=== PATIENT | female | born 1970 | race Hispanic/Latino ===

== ENCOUNTER 2017-06-21 11:54 | Inpatient (IN) | payer MEDICAID ==
[2017-06-21 11:55] VITALS: BMI 26.4
[2017-06-21 12:44] LABS: BASO % 0.5 % (0.0-2.0); EOS # 0.1 K/uL (0.0-0.7); EOS % 0.9 % (0.0-4.0); HEMOGLOBIN 12.8 g/dL (11.0-16.0); LYMPH # 1.8 K/uL (1.0-4.3); LYMPH % 20.4 % (20.0-40.0); MEAN CELL VOLUME 93.7 fL (81.0-99.0); MEAN PLATELET VOLUME 8.5 fL (7.2-11.7); MONO # 0.5 K/uL (0.0-0.8); NEUT # 6.3 K/uL (1.8-7.0); NEUT % 72.2 % (50.0-75.0); RBC 4.12 Mil/uL (3.80-5.20); RED CELL DISTRIBUTION WIDTH 13.7 % (11.5-14.5); WHITE BLOOD COUNT 8.7 K/uL (4.8-10.8)
[2017-06-21 12:49] LABS: ALBUMIN 3.9 g/dL (3.5-5.0)
[2017-06-21 12:52] LABS: ALB/GLOB RATIO 1.3 (1.0-2.1); AST/SGOT 22 U/L (14-36); GFR AFRICAN-AMERICAN > 60; GFR NON-AFRICAN AMERICAN > 60
[2017-06-21 12:53] LABS: ALT/SGPT 21 U/L (9-52); BLOOD UREA NITROGEN 18 mg/dL (7-17); CALCIUM 8.7 mg/dl (8.6-10.4)
--- NOTE | 2017-06-21 12:57 | C.PDOC ---
History Of Present Illness Zakia Ji, a 47 year old female, presents to the ED requesting an alcohol and opiate detox. Patient reports that her last drink was yesterday at 1999 and her last heroin INH was at 0900. Denies HI/SI hallucinations. Chief Complaint (Nursing): Substance Abuse History Per: Patient History/Exam Limitations: no limitations Modifying Factor(s): Alcohol, Other (Opiates) Past Medical History Reviewed: Historical Data, Nursing Documentation, Vital Signs Vital Signs: Last Vital Signs Temp 98.2 F 06/21/17 15:43 Pulse 84 06/21/17 15:43 Resp 18 06/21/17 15:43 BP 108/74 06/21/17 15:43 Pulse Ox 98 06/21/17 15:43 - Medical History PMH: Anxiety, Bipolar Disorder, COPD, Depression Denies: Alzheimer's Disease, Anemia, Arthritis, Asthma, Bronchitis, Cardia Arrhythmia, CHF, Crohn's Disease, Dementia, Diabetes, Diverticulitis, Emphysema , Fibromyalgia, Fractures, Gastrointestinal Ulcer, Gall Bladder Disease, Hepatitis, HIV, HTN, Hypercholesterolemia, Hyperthyroidism, Hypothyroidism, Kidney Stones, Migraine, Mitral Valve Prolapse, Osteoporosis, Pancreatitis, Paranoia, Parkinson's Disease, Peripheral Edema, Pneumonia, Post Traumatic Stress Disorder, Chronic Kidney Disease, Schizophrenia, Seizures, Sickle Cell Disease, Sexually Transmitted Disease, Sleep Apnea, TIA Surgical History: Denies: Appendectomy, Cholecystectomy, Coronary Stent, Pacemaker - [facility] Procedures INJECT/INFUSE NEC (10/10/13) PSYCHIA INTERV/EVAL NEC (08/10/14) SUTURE OF LIP LACERATION (04/27/14) TETANUS TOXOID ADMINIST (04/27/14) Family History: States: Unknown Family Hx - Social History Hx Tobacco Use: Yes Hx Alcohol Use: No Hx Substance Use: No - Immunization History Hx Tetanus Toxoid Vaccination: Yes (2015) Hx Influenza Vaccination: Yes Hx Pneumococcal Vaccination: No Review Of Systems Except As Marked, All Systems Reviewed And Found Negative. Psych: Positive for: Other (No homicidal ideations). Negative for: Suicidal ideation Physical Exam - Physical Exam Appears: Well, Non-toxic, No Acute Distress Skin: Normal Color, Warm, Dry Head: Atraumatic, Normacephalic, No Tenderness Eye(s): bilateral: Normal Inspection, PERRL, EOMI Nose: Normal Oral Mucosa: Moist Tongue: Normal Appearing Lips: Normal Appearing Gingiva: Normal Appearing Throat: Normal Neck: Normal, Normal ROM, Supple Chest: No Deformity, No Tenderness Cardiovascular: Rhythm Regular Respiratory: Normal Breath Sounds, No Wheezing Gastrointestinal/Abdominal: Normal Exam, Bowel Sounds, Soft, No Tenderness, No Guarding, No Rebound Back: Normal Inspection, No CVA Tenderness Extremity: Normal ROM, No Tenderness, No Pedal Edema, No Deformity, No Swelling Neurological/Psych: Oriented x3, Normal Speech, Normal Cognition ED Course And Treatment - Laboratory Results Result Diagrams: 06/21/17 12:37 06/21/17 12:37 O2 Sat by Pulse Oximetry: 98 (RA) Pulse Ox Interpretation: Normal Progress Note: Patient is medically cleared and was accepted to Detox by . Medical Decision Making Medical Decision Making: Initial Impression: 47 year old male presenting for alcohol and opiate detox Initial Plan: * Alcohol serum * Comp Metabolic panel * Drug Screen * CBC * HCG-Qualitative * Urinalysis * Reevaluation Patient screened by crisis, Pending medical evaluation. Disposition - Disposition Disposition: HOSPITALIZED Disposition Time: 14:42 Condition: STABLE - Clinical Impression Clinical Impression: Drug dependence, Alcohol dependence - Scribe Statement The provider has reviewed the documentation as recorded by the Scribe Samina Fletcher All medical record entries made by the Scribe were at my direction and personally dictated by me. I have reviewed the chart and agree that the record accurately reflects my personal performance of the history, physical exam, medical decision making, and the department course for this patient. I have also personally directed, reviewed, and agree with the discharge instructions and disposition. Decision To Admit - Pt Status Changed To: Hospital Disposition Of: Inpatient - Admit Certification Admit to Inpatient:: After my assessment, the patient will require hospitalization for at least two midnights. This is because of the severity of symptoms shown, intensity of services needed, and/or the medical risk in this patient being treated as an outpatient. - InPatient: Physician Admission Certification: I certify that this patient requires 2 or more midnights of care for the following reason:: Will need more than 2 days for detox - . Bed Request Type: Detox Admitting Physician: Sonia Al Patient Diagnosis: Drug dependence, Alcohol dependence
[2017-06-21 12:58] LABS: BARBITURATES, UR NEGATIVE (NEGATIVE)
[2017-06-21 13:02] LABS: PHENCYCLIDINE, UR NEGATIVE (NEGATIVE)
[2017-06-21 13:05] LABS: SQUAMOUS EPITHIAL 1 /hpf (0-5); URINE BILIRUBIN NEGATIVE (NEGATIVE); URINE BLOOD 1+ (NEGATIVE); URINE CLARITY Clear (Clear); URINE COLOR Yellow (YELLOW); URINE GLUCOSE (UA) NORMAL (Normal); URINE LEUKOCYTE ESTERASE NEG Leu/uL (Negative); URINE NITRATE NEGATIVE (NEGATIVE); URINE PROTEIN NEGATIVE (NEGATIVE); URINE UROBILINOGEN NORMAL mg/dL (0.2-1.0)
[2017-06-21 13:06] LABS: HCG,QUALITATIVE URINE NEGATIVE (NEGATIVE)
[2017-06-21 13:17] LABS: BENZODIAZEPINES, UR POSITIVE (NEGATIVE)
[2017-06-21 13:18] LABS: OPIATES, UR POSITIVE (NEGATIVE)
[2017-06-21 15:06] VITALS: RESP 18
--- NOTE | 2017-06-21 15:23 | PCM.BM ---
<Heather Tee - Last Filed: 06/21/17 15:21> Treatment Plan Problems - Problems identified on initial assessmt potiential for opiate withdrawal Date Initiated: 06/21/17 Time Initiated: 15:21 Assessment reference: NA Status: Active Priority: 1 ineffective coping Date Initiated: 06/21/17 Time Initiated: 15:22 Assessment reference: NA Status: Active Treatment assets and liabiliti Patient Assests: motivated, ADL independent Patient Liabilities: substance abuse - Milieu Protocol Maintain good personal hygiene: daily Encourage regular showers, daily Remind patient to perform daily oral care, daily Assist patient to perform ADL's Maintain personal safety: every shift Educate patient to report safety concerns to staff, every shift Monitor environment for contraband/sharps Medication safety: Monitor for expected outcome, potential side effects: every shift, Assess barriers to learning: every shift, Assess readiness for medication education: every shift <Sonia Al - Last Filed: 06/22/17 09:48> - Diagnosis (1) Alcohol dependence Status: Acute Interventions: 06/22/17 09:47 * Assess 7x/week regarding severity of withdrawal * Educate regarding risks, benefits, side effects and alternatives of medications * Use Motivational Interviewing for abstinence * Use CBT for relapse prevention * Medication management for withdrawal symptoms * Encourage medication assisted treatment * (2) Opioid use disorder, severe, dependence Status: Acute Interventions: 06/22/17 09:47 * Assess 7x/week regarding severity of withdrawal * Educate regarding risks, benefits, side effects and alternatives of medications * Use Motivational Interviewing for abstinence * Use CBT for relapse prevention * Medication management for withdrawal symptoms * Encourage medication assisted treatment *
[2017-06-21] MEDS ORDERED: Albuterol HFA 90 mcg/actuation (8 g) INH PRN (16:23)
[2017-06-21] MEDS ORDERED: Aluminum Hydroxide/Magnesium Hydroxide Susp (30 mL) PO PRN (17:15)
--- NOTE | 2017-06-22 09:47 | PCM.PSYCH ---
Initial Psychiatric Evaluation - Initial Psychiatric Evaluation Type of Admission: Voluntary Legal Status: Capacity Chief Complaint (in patient's own words): "Heroin, I need detox and maybe methadone" History of Present Illness and Precipitating Events: The pt is seen, chart reviewed and case discussed. 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 She reports using heroin 10 - 15 bags intranasally x 22 years. She did take oxy 15 mg/d "for pain" on top of heroin She also drinks 1/2 pint of alcohol a day x4 years. She sometimes gets shakes but no DTs or seizures. Last drank 2 days ago She smokes 1/2 ppd and MJ "sometimes" Denies other drugs but was rx'ed low dose klonopin This is her 2nd detox and has never been to rehab or [facility] She has some psych sxs but mild, on meds for bipolar d/o (seroquel 600 mg/d) Past psych hx: Bipolar, anxiety and ADHD she claims. No desmond attempts Family psych hx: Mo used opiates and alcohol medical hx: Disc hernia Current Medications: Active Medications Generic Name Dose Route Start Last Admin Trade Name Freq PRN Reason Stop Dose Admin Al Hydrox/Mg Hydrox/Simethicone 30 ml 06/21/17 17:15 Maalox 30 Ml PO TID PRN Indigestion / Heartburn Albuterol 1 puff 06/21/17 16:23 Ventolin Hfa 90 Mcg/Actuation (8 G) INH RQ6 PRN sob Chlordiazepoxide 25 mg 06/22/17 09:20 Librium PO Q4H PRN Alcohol Withdrawal Clindamycin HCl 300 mg 06/21/17 17:00 06/22/17 00:11 Cleocin PO 300 mg Q8H YISEL Administration Clonidine HCl 0.1 mg 06/21/17 17:15 Catapres PO Q8 PRN COWS Score More or Equal to 5 Folic Acid 1 mg 06/22/17 10:00 Folic Acid PO DAILY YISEL Gabapentin 300 mg 06/21/17 18:00 06/21/17 18:37 Neurontin PO 300 mg BID YISEL Administration Hydroxyzine HCl 25 mg 06/21/17 17:17 Atarax PO Q4H PRN Anxiety Ibuprofen 600 mg 08/05/17 17:17 Motrin Tab PO Q6H PRN Pain, moderate (4-7) Loperamide HCl 2 mg 06/21/17 17:15 Imodium PO Q8 PRN Diarrhea Multivitamins 1 tab 06/22/17 10:00 Hexavitamin PO DAILY YISEL Ondansetron HCl 4 mg 06/21/17 17:15 Zofran Tab PO Q8 PRN Nausea/Vomiting Quetiapine Fumarate 300 mg 06/21/17 22:00 06/21/17 22:06 Seroquel PO 300 mg HS YISEL Administration Quetiapine Fumarate 300 mg 06/22/17 10:00 Seroquel PO DAILY YISEL Thiamine HCl 100 mg 06/22/17 10:00 Vitamin B1 Tab PO DAILY YISEL Past Psychiatric History - Past Psychiatric History Previous Treatment History: Intensive Outpatient Pertinent Medical Hx (Current Medical&Sleep Prob, Allergies): Allergies Allergy/AdvReac Type Severity Reaction Status Date / Time No Known Allergies Allergy Verified 06/21/17 11:57 QUEtiapine [SEROquel] 150 mg PO BID 09/09/14 clonazePAM [Klonopin] 0.5 mg PO BID 09/09/14 Naproxen [Naprosyn] 500 mg PO BID #20 tab 05/19/16 Clindamycin [Cleocin] 300 mg PO TID #30 cap 06/19/17 oxyCODONE [oxyCODONE Immediate Release Tab] 7.5 mg PO BID 06/19/17 Clindamycin [Cleocin] 300 mg PO TID 06/21/17 Review of Systems - Neurological Neurological: UNREMARKABLE - Psychiatric Psychiatric: Abnormal Sleep Pattern, Anxiety, Difficulty Concentrating, Mood Swings. absent: Hallucinations, Homicidal Ideation, Paranoia, Suicidal Ideation Mental Status Examination - Personal Presentation Personal Presentation: Looks older than stated age - Affect Affect: Constricted - Motor Activity Motor Activity: Calm - Reliability in Providing Information Reliability in Providing Information: Good - Speech Speech: Organized - Mood Mood: Anxious, Other (irate) - Formal Thought Process Formal Thought Process: No Impairment - Cognitive Functions Orientation: Person, Place, Situation, Time Sensorium: Alert Attention/Concentration: Attentive Estimate of Intelligence: Average Judgement: Intact, as evidence by: Insight regarding need for hospitalization Memory: Recent intact, as evidence by: Ability to recall events of the day, Remote intact, as evidenced by: Abilit to recall sig. life events - Risk Risk: Withdrawal, Diminished functioning - Strength & Assets Inventory Strength & Assets Inventory: Family support, Employment history, Cooperative - Limitations Limitations: Other DSM 5 DX - DSM 5 DSM 5 Diagnosis: Opioid withdrawal Opioid use d/o - severe Bipolar one d/o, MRE depressed r/o borderline PD Tobacco use d/o - severe Cannabis use d/o - mild - Recommended/Plan of Treatment Treatment Recommendations and Plan of Treatment: Opioids: Methadone detox as she had already used it Gabapentin for augmentation As needed meds and vitamins Attend groups and activities NV for abstinence and CBT for relapse prevention Support and psychoeducation Consider and encourage MAT Refer to after care Bipolar: Cont. Seroquel CBt and support MJ and Tobacco: NV for abstinence patch for nicotine 34 min Projected ELOS: 5 days Prognosis: good w treatment Discharge Plan and Discharge Criteria: NO wdw sxs Refer to [facility] - Smoking Cessation Smoking Cessation Initiated: Yes
[2017-06-22] MEDS: Multiple Vitamins Tab PO SCH (11:40)
[2017-06-23] MEDS: Multiple Vitamins Tab PO SCH (10:07)
--- NOTE | 2017-06-23 13:18 | PCM.PYCHPN ---
Psychiatric Progress Note - Psychiatric Progress Note Patient seen today, length of contact: 20 min Patient Chief Complaint: "I had a terrible night last nigh, I want to leave" Problems Identified/Issues Discussed: The pt is seen, chart reviewed, case discussed with staff. The pt is compliant with medications and reports no side-effects. Symptoms are somewhat improving , especially in the day time, but last night she had significant insomni, anxiety and some wdw sxs She will get an extra 5 mg methadone at night until she tapers down to zero After care discussed, support and psychoeducation given. She agreed to stay Sleeping pills adjusted Medication Change: Yes (meds adjusted, detox changes daily) Medical Record Reviewed: Yes Mental Status Examination - Cognitive Function Orientation: Person, Place, Situation, Time Memory: Intact Attention: Poor Concentration: Poor Association: WNL Fund of Knowledge: WNL - Mood Mood: Anxious, Other (irate) - Affect Affect: Constricted - Speech Speech: Appropriate, Loud (at times) - Formal Thought Process Formal Thought Process: No Impairment - Suicidal Ideation Suicidal Ideation: No - Homicidal Ideation Homicidal Ideation: No Goal/Treatment Plan - Goal/Treatment Plan Need for Continued Stay: Discharge may exacerbated symptoms, Severe functional impairment Progress Toward Problem(s) and Goals/Treatment Plan: Opioids: Methadone detox adjusted Gabapentin for augmentation As needed meds and vitamins Attend groups and activities MA for abstinence and CBT for relapse prevention Support and psychoeducation Consider and encourage MAT Refer to after care Bipolar: Cont. Seroquel but adjust dose to 200 and 400 CBT and support MJ and Tobacco: MA for abstinence patch for nicotine Estimated Date of D/C: 06/26/17
[2017-06-24] MEDS: Multiple Vitamins Tab PO SCH (09:23)
--- NOTE | 2017-06-24 10:45 | PCM.PYCHPN ---
Psychiatric Progress Note - Psychiatric Progress Note Patient seen today, length of contact: 16 min Patient Chief Complaint: "I am better now" Problems Identified/Issues Discussed: The pt is seen, chart reviewed, case discussed with staff. She said she would have to leave tomorrow b/c she has an appointment for a biopsy tomorrow. She is offered help to reschedule it but she declined b/c she had "pain." Then, she is asked why she didn't tell anyone about this but she disingenuously said she had. She did tell about the cyst but never mentioned the biopsy appointment to anyone. In fact, she was asking the dr if she could see someone while here. Then, she is reminded that she would be dropping down from a high dose and she agreed to skip the additional 5 mg tonight and just get the 5 in AM and leave. Support given She plans to go to [facility] Medication Change: Yes (meds adjusted, detox changes daily) Medical Record Reviewed: Yes Mental Status Examination - Cognitive Function Orientation: Person, Place, Situation, Time Memory: Intact Attention: Poor Concentration: Poor Association: WNL Fund of Knowledge: WNL - Mood Mood: Anxious, Other (irate) - Affect Affect: Constricted - Speech Speech: Appropriate, Loud (at times) - Formal Thought Process Formal Thought Process: No Impairment - Suicidal Ideation Suicidal Ideation: No - Homicidal Ideation Homicidal Ideation: No Goal/Treatment Plan - Goal/Treatment Plan Need for Continued Stay: Discharge may exacerbated symptoms, Severe functional impairment Progress Toward Problem(s) and Goals/Treatment Plan: Opioids: Methadone detox adjusted Gabapentin for augmentation As needed meds and vitamins Attend groups and activities OR for abstinence and CBT for relapse prevention Support and psychoeducation Consider and encourage MAT Refer to after care Bipolar: Cont. Seroquel but adjust dose to 200 and 400 CBT and support MJ and Tobacco: OR for abstinence patch for nicotine Estimated Date of D/C: 06/25/17
[2017-06-24 13:41] VITALS: O2SAT 97
[2017-06-24 15:27] VITALS: BP 111/78; PULSE 93; TEMP 97
--- NOTE | 2017-06-24 22:09 | PCM.PYCHDC ---
Mental Status Examination - Mental Status Examination Orientation: Person Discharge Summary - Discharge Note Consultations:: List each consultation separately and include: 1. Reason for request. 2. Findings. 3. Follow-up Summary of Hospital Course include:: 1. Description of specific treatment plan utilized for patients during their course of treatmen. 2. Summarize the time- course for resolution of acute symptoms and/or regressed behaviors. 3. Describe issues identified and worked on during hospitalization. 4. Describe medication utilized. 5. Describe medical problems identified and treated. 6. Reassessment of suicide risk Summary of Hospital Course: The pt is seen, chart reviewed and case discussed. 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 She reports using heroin 10 - 15 bags intranasally x 22 years. She did take oxy 15 mg/d "for pain" on top of heroin She also drinks 1/2 pint of alcohol a day x4 years. She sometimes gets shakes but no DTs or seizures. Last drank 2 days ago She smokes 1/2 ppd and MJ "sometimes" Denies other drugs but was rx'ed low dose klonopin This is her 2nd detox and has never been to rehab or [facility] She has some psych sxs but mild, on meds for bipolar d/o (seroquel 600 mg/d) Past psych hx: Bipolar, anxiety and ADHD she claims. No desmond attempts Family psych hx: Mo used opiates and alcohol medical hx: Disc hernia - Diagnosis (1) Alcohol dependence Status: Acute - Final Diagnosis (DSM 5) Condition upon Discharge: STABLE Disposition: AGAINST MEDICAL ADVICE Follow-up Treatment Plan: Opioids: Methadone detox adjusted Gabapentin for augmentation As needed meds and vitamins Attend groups and activities PR for abstinence and CBT for relapse prevention Support and psychoeducation Consider and encourage MAT Refer to after care Bipolar: Cont. Seroquel but adjust dose to 200 and 400 CBT and support MJ and Tobacco: PR for abstinence patch for nicotine
== END 2017-06-24 18:07 | disposition left against medical advice (07) | DRG 743 ==
LOC: C.ER 11:54 → C.7D 14:41
PROVIDERS: ADMIT Psychiatry & Neurology Psychiatry; ATTEND Psychiatry & Neurology Psychiatry
PROC: HZ2ZZZZ Detoxification Services for Substance Abuse Treatment (ICD-10-PCS; principal; 2017-06-22)
PROC: HZ52ZZZ Individual Psychotherapy for Substance Abuse Treatment, Cognitive-Behavioral (ICD-10-PCS; 2017-06-22)
PROC: HZ59ZZZ Individual Psychotherapy for Substance Abuse Treatment, Supportive (ICD-10-PCS; 2017-06-22)
PROC: HZ56ZZZ Individual Psychotherapy for Substance Abuse Treatment, Psychoeducation (ICD-10-PCS; 2017-06-22)
PROC: HZ42ZZZ Group Counseling for Substance Abuse Treatment, Cognitive-Behavioral (ICD-10-PCS; 2017-06-22)
PROC: HZ46ZZZ Group Counseling for Substance Abuse Treatment, Psychoeducation (ICD-10-PCS; 2017-06-22)
DX: F11.23 Opioid dependence with withdrawal (principal); F10.230 Alcohol dependence with withdrawal, uncomplicated; J44.9 Chronic obstructive pulmonary disease, unspecified; Y90.0 Blood alcohol level of less than 20 mg/100 ml; F41.9 Anxiety disorder, unspecified; F17.210 Nicotine dependence, cigarettes, uncomplicated; F31.9 Bipolar disorder, unspecified; F60.3 Borderline personality disorder; F12.90 Cannabis use, unspecified, uncomplicated